=== PATIENT | female | born 1980 | race Caucasian/White ===

== ENCOUNTER 2017-04-21 20:16 | Outpatient (CLI) | payer OTHER | END 2017-04-21 20:17 | disposition critical access hospital (66) | LOC: EMS 20:16 | PROVIDERS: ATTEND Surgery | DX: R51 Headache (principal) | CPT/HCPCS: A0425; A0429 ==

== ENCOUNTER 2017-04-21 20:29 | Emergency (ER) | payer OTHER ==
[2017-04-21] MEDS ORDERED: ONDANSETRON ODT 4 MG TABLET TL STA (20:33)
[2017-04-21] MEDS ORDERED: ONDANSETRON ODT 4 MG TABLET ONE (20:41)
[2017-04-21] MEDS ORDERED: HYDROmorphone 1 MG/ML SYRINGE IVP STA (20:47)
[2017-04-21] MEDS ORDERED: HYDROmorphone 1 MG/ML SYRINGE ONE (20:48)
--- NOTE | 2017-04-21 21:02 | ED Physician Documentation ---
PD HPI HEADACHE - Stated complaint Stated Complaint: HEADACHE SUDDEN ONSET - Chief complaint Chief Complaint: Neuro - History obtained from History obtained from: Patient, Family, EMS - History of Present Illness Timing - onset: Today Timing - onset during: Rest Timing - duration: Minutes Timing - details: Abrupt onset, Still present Worst headache ever?: Worst headache ever? Location: Front, Other (top) Quality: Throbbing Associated symptoms: Nausea, Vomiting. No: Fever, Stiff neck, Weakness, Numbness, Syncope, Seizure, Eye pain, Vision changes Improved by: Rest Worsened by: Moving Contributing factors: No: Anticoagulated Similar symptoms before: Other (has a history of migraine) Recently seen: Not recently seen - Additional information Additional information: 36 y/o female with a history of migraine was in the kitchen cooking when she had the onset of severe headache accompanied by nausea and vomiting. Her notes she was in pain curled in the position crying and he called 911. Review of Systems Constitutional: denies: Fever, Chills, Myalgias, Fatigue Eyes: denies: Loss of vision, Decreased vision Ears: denies: Ear pain Nose: denies: Rhinorrhea / runny nose, Congestion Throat: denies: Sore throat Cardiac: denies: Chest pain / pressure, Palpitations Respiratory: denies: Dyspnea, Cough GI: reports: Nausea, Vomiting. denies: Abdominal Pain : denies: Dysuria, Frequency Skin: denies: Lesions Musculoskeletal: denies: Neck pain, Back pain, Extremity pain Neurologic: reports: Headache. denies: Generalized weakness, Focal weakness, Numbness, Difficulty speaking, Syncope, Seizure, Confused, Altered mental status , Head injury, LOC PD PAST MEDICAL HISTORY - Past Medical History Past Medical History: Yes Neuro: Headache/migraine - Past Surgical History Past Surgical History: Yes General: Appendectomy HEENT: Tonsil/Adenoidectomy - Present Medications Home Medications: Ambulatory Orders Medication Instructions Recorded Confirmed Antiviral 04/21/17 Escitalopram [Lexapro] 10 mg PO DAILY 04/21/17 04/21/17 - Allergies Allergies/Adverse Reactions: Allergies Allergy/AdvReac Type Severity Reaction Status Date / Time No Known Drug Allergies Allergy Verified 04/21/17 20:34 - Social History Does the pt smoke?: No Smoking Status: Never smoker Does the pt drink ETOH?: No Does the pt have substance abuse?: No - Immunizations Immunizations are current?: Yes - POLST Patient has POLST: No PD ED PE NORMAL - Vitals Vital signs reviewed: Yes (hypertensive) - General General: Alert and oriented X 3, Well developed/nourished, Other (The patient moves slowly and appears to be in pain with spray blender tone, flat affect and tears. 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 ) Results - Vitals Vitals: Vital Signs - 24 hr 04/21/17 04/21/17 04/21/17 20:30 21:03 21:43 Temperature 36.1 C L Heart Rate 93 58 L Respiratory 18 18 Rate Blood Pressure 142/109 H 130/80 128/82 H O2 Saturation 100 97 04/21/17 04/21/17 22:18 22:59 Temperature Heart Rate 72 68 Respiratory 17 16 Rate Blood Pressure 115/71 105/61 O2 Saturation 98 97 Oxygen O2 Source Room air - Rads (name of study) CT head without Radiology: Prelim report reviewed (Impression: Normal head CT.), EMP read indepedently, See rad report PD MEDICAL DECISION MAKING - ED course Complexity details: reviewed old records, reviewed results, re-evaluated patient , considered differential, d/w patient, d/w family ED course: 36 y/o female with a history of migraine has had a sever debilitating headache this evening and arrives in the ED with pain and nausea with vomiting. She has no meningismus and no fever and she improves with IV dilaudid and TL zofran. She does not have resolution and her headache was concerning enough to get imagining and this was a normal study. She is treated further with a liter of saline, decadraon, compazine, benadryl and toradal with further improvement. I suspect this is a bad migraine and I find no other concerns on examination. Departure - Departure Disposition: 01 Home, Self Care Clinical Impression: Migraine Qualifiers: Migraine type: without aura Status migrainosus presence: with status migrainosus Intractability: not intractable Qualified Code(s): G43.001 - Migraine without aura, not intractable, with status migrainosus Condition: Stable Instructions: ED Headache Migraine Follow-Up: Rony Erwin DO [Physician No Access] - Comments: Today in the Emergency Department your blood pressure was elevated. This can happen from the stress of the visit itself, from a current illness or circumstance or from uncontrolled hypertension. If you take blood pressure medications take your usual mediations, have your blood pressure re-checked in an appropriate setting and follow up any elevation with your primary care doctor. Discharge Date/Time: 04/21/17 23:04
--- NOTE | 2017-04-21 21:39 | CT Preliminary Report ---
Exam: CT Head W/O IMPRESSION: Normal head CT. [facility] SITE ID: [id number]
--- NOTE | 2017-04-21 21:42 | CT Report ---
EXAM: CT HEAD EXAM DATE: 04/21/2017 09:22 PM. CLINICAL HISTORY: Sudden headache and vomiting. COMPARISON: None. TECHNIQUE: Multiaxial CT images were obtained from the foramen magnum to the vertex. IV contrast: Non e. Reformats: Coronal. In accordance with CT protocol optimization, one or more of the following dose reduction techniques w ere utilized for this exam: automated exposure control, adjustment of mA and/or KV based on patient s ize, or use of iterative reconstructive technique. FINDINGS: Parenchyma: No intraparenchymal hemorrhage. No evidence of mass, midline shift, or CT findings of inf arction. Bryant-white differentiation is distinct. Extraaxial Spaces: Normal for age. No subdural or epidural collections identified. Ventricles: Normal in size and position. Sinuses: Imaged paranasal sinuses, orbits, and mastoids show no significant abnormality. Bones: No evidence of fracture or calvarial defect. Other: None. IMPRESSION: Normal head CT. [facility] Referring Provider Line: [phone] SITE ID: [id number]
[2017-04-21] MEDS ORDERED: PROCHLORPERAZINE 10 MG/2 ML VIAL IVP STA (21:58)
[2017-04-21] MEDS ORDERED: diphenhydrAMINE INJ 50 MG/ML VIAL IVP STA (21:58)
[2017-04-21] MEDS ORDERED: SODIUM CHLORIDE 0.9% 1,000 ML IV ONE (21:58)
[2017-04-21] MEDS ORDERED: KETOROLAC 60 MG/2 ML VIAL IVP STA (21:58)
[2017-04-21] MEDS ORDERED: DEXAMETHASONE 10 MG/ML VIAL IVP STA (21:58)
[2017-04-21] MEDS ORDERED: DEXAMETHASONE 10 MG/ML VIAL ONE (22:12)
[2017-04-21] MEDS ORDERED: KETOROLAC 30 MG/ML VIAL ONE (22:12)
[2017-04-21] MEDS ORDERED: diphenhydrAMINE INJ 50 MG/ML VIAL ONE (22:12)
[2017-04-21] MEDS ORDERED: PROCHLORPERAZINE 10 MG/2 ML VIAL ONE (22:12)
[2017-04-21 22:59] VITALS: BP 105/61
== END 2017-04-21 23:04 | disposition home or self-care (01) ==
LOC: EDUNIT# → ED 20:29
DX: G43.001 Migraine without aura, not intractable, with status migrainosus (principal)
CPT/HCPCS: 36415; 70450; 96374; 96375; 99284; J1170; Q0162

== ENCOUNTER 2018-06-22 08:49 | Outpatient (CLI) | payer OTHER ==
--- NOTE | 2018-06-23 10:45 | Ultrasound Report ---
Procedure Date: 06/22/2018 Accession Number: [id number] / [id number] Procedure: US - Abdomen Limited CPT Code: FULL RESULT: EXAM: ABDOMEN ULTRASOUND LIMITED, RUQ EXAM DATE: 06/22/2018 09:59 AM. CLINICAL HISTORY: Change in bowel habits, right upper quadrant abdominal pain, GERD. COMPARISON: None. TECHNIQUE: Real-time scanning was performed with static images obtained. FINDINGS: Liver: Normal in size and echotexture. Liver measures at least 15.3 cm. Main portal vein flow: Hepatopetal. Gallbladder: There are no calculi and there is no wall thickening or sonographic Epps's sign. Note is made of focal comet tail artifact adherent to the gallbladder wall, most likely adenomyomatosis of the gallbladder. Biliary System: No intrahepatic or extrahepatic ductal dilatation. Other: None. IMPRESSION: Gallbladder adenomyomatosis. This is most often asymptomatic but rarely can be associated with pain. [facility]
== END 2018-06-22 08:50 | disposition home or self-care (01) ==
LOC: DI 08:49
PROVIDERS: ATTEND Internal Medicine Gastroenterology
DX: R19.4 Change in bowel habit (principal); R10.11 Right upper quadrant pain; K21.9 Gastro-esophageal reflux disease without esophagitis
CPT/HCPCS: 76705

== ENCOUNTER 2019-12-01 11:46 | Outpatient (CLI) | payer OTHER, BC ==
--- NOTE | 2019-12-01 13:15 | Ultrasound Report ---
Reason: BRCA1 GENE MUTATION POSITIVE, CYSTS BOTH OVARIES Procedure Date: 12/01/2019 Accession Number: [id number] / [id number] Procedure: US - Pelvic w/Transvaginal CPT Code: Final Report FULL RESULT: EXAM: PELVIC ULTRASOUND EXAM DATE: 12/01/2019 11:53 AM. CLINICAL HISTORY: BRCA1 GENE MUTATION POSITIVE, CYSTS BOTH OVARIES. COMPARISON: 06/22/2018 9:04 AM. TECHNIQUE: Realtime transabdominal pelvic scan performed to identify the uterus and adnexa and as an overview of other pelvic structures, followed by transvaginal scan to provide greater detail of the uterus and adnexa, with static image documentation. FINDINGS: Uterus: 8.4 x 4.4 x 5.5 cm, volume 106 cc. Anteverted position. Normal overall size and echotexture. Masses: None. Endometrium: 8 mm. Normal. Cervix: Unremarkable. Right Ovary: 6.2 x 3.7 x 6.2 cm, volume 74.4 cc. 4.5 x 4.1 x 3 cm cyst with daughter cyst 3 x 1.7 x 2 cm. 2.1 x 1.3 x 1.6 cm cyst. Normal flow Left Ovary: 2.3 x 1.5 x 1.6 cm, volume 2.9 cc. Normal echotexture and blood flow. Free Fluid: None. Other: None. IMPRESSION: 1. Multiple right ovarian simple cysts largest 4.5 cm [facility]
== END 2019-12-01 11:47 | disposition home or self-care (01) ==
LOC: DI 11:46
PROVIDERS: ATTEND Obstetrics & Gynecology
DX: N83.201 Unspecified ovarian cyst, right side (principal); Z15.01 Genetic susceptibility to malignant neoplasm of breast; Z15.02 Genetic susceptibility to malignant neoplasm of ovary; Z15.09 Genetic susceptibility to other malignant neoplasm
CPT/HCPCS: 76830; 76856

== ENCOUNTER 2019-12-07 15:00 | Outpatient (CLI) | payer OTHER, BC | END 2019-12-07 15:01 | disposition home or self-care (01) | LOC: LAB 15:00 | PROVIDERS: ATTEND Obstetrics & Gynecology | DX: Z15.01 Genetic susceptibility to malignant neoplasm of breast (principal); N83.202 Unspecified ovarian cyst, left side; N83.201 Unspecified ovarian cyst, right side | CPT/HCPCS: 36415; 86304 ==

== ENCOUNTER 2020-03-12 15:07 | Outpatient (CLI) | payer OTHER ==
--- NOTE | 2020-03-12 19:38 | Ultrasound Report ---
Reason: RIGHT OVARIAN CYSTS F/U Procedure Date: 03/12/2020 Accession Number: [id number] / [id number] Procedure: US - Pelvic w/Transvaginal CPT Code: Final Report FULL RESULT: EXAM: PELVIC ULTRASOUND EXAM DATE: 03/12/2020 04:08 PM. CLINICAL HISTORY: Follow-up right ovarian cystic lesion. COMPARISON: PELVIC W/TRANSVAGINAL 12/01/2019 11:53 AM. TECHNIQUE: Realtime transabdominal pelvic scan performed to identify the uterus and adnexa and as an overview of other pelvic structures, followed by transvaginal scan to provide greater detail of the uterus and adnexa, with static image documentation. FINDINGS: Uterus: 8.4 x 4.2 x 4.4 cm, volume 80 cc. Anteverted position. Normal overall size and echotexture. Masses: None. Endometrium: 7 mm. Normal. Cervix: Several tiny nabothian cysts measure less than 1 cm. Right Ovary: 3.3 x 2.9 x 2.9 cm, volume 14.6 cc. 3 follicles or simple cysts range in size from 1.5-2.5 cm. Previously larger cysts were identified measuring up to 4.5 cm. No solid masses or evidence for torsion. Left Ovary: 2.0 x 2.4 x 2.6 cm, volume 6.4 cc. Normal echotexture and blood flow. Free Fluid: Trace. Other: None. IMPRESSION: 1. Interval resolution of 4.5 cm right ovarian cyst. 2. 3 follicles or smaller simple cysts now present in the right ovary measuring up to 2.5 cm. No further follow-up necessary for cysts of this size. [facility]
== END 2020-03-12 15:08 | disposition home or self-care (01) ==
LOC: DI 15:07
PROVIDERS: ATTEND Obstetrics & Gynecology
DX: N83.201 Unspecified ovarian cyst, right side (principal); Z15.01 Genetic susceptibility to malignant neoplasm of breast; Z15.02 Genetic susceptibility to malignant neoplasm of ovary; Z15.09 Genetic susceptibility to other malignant neoplasm
CPT/HCPCS: 76830; 76856

== ENCOUNTER 2020-12-21 21:36 | Emergency (ER) | payer BC, OTHER ==
[2020-12-21 21:47] VITALS: BP 130/82
[2020-12-21] MEDS ORDERED: DEXAMETHASONE 10 MG/ML VIAL PO STA (22:03)
[2020-12-21] MEDS ORDERED: CHERRY SYRUP 10 ML UDC PO ONE (22:03)
--- NOTE | 2020-12-21 22:05 | ED Physician Documentation ---
History of Present Illness - Stated complaint Stated Complaint: SORE THROAT - Chief complaint Chief Complaint: Heent - Additonal information Additional information: 40-year-old female presents emergency department for evaluation of sore throat that began yesterday. No cough no fevers no exudate. Positive tender anterior cervical lymphadenopathy. No dysphonia Patient had similar 1 year ago and received decadron and is requesting same today. Denies the possibility of , lmp 1 week ago Review of Systems Constitutional: denies: Fever, Chills Eyes: reports: Reviewed and negative Ears: reports: Reviewed and negative Nose: reports: Reviewed and negative Throat: reports: Sore throat. 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 HEENT: Tonsil/Adenoidectomy - Present Medications Home Medications: Ambulatory Orders Medication Instructions Recorded Confirmed Antiviral 04/21/17 Escitalopram [Lexapro] 10 mg PO DAILY 04/21/17 04/21/17 - Allergies Allergies/Adverse Reactions: Allergies Allergy/AdvReac Type Severity Reaction Status Date / Time No Known Drug Allergies Allergy Verified 04/21/17 20:34 - Social History Does the pt smoke?: No Smoking Status: Never smoker Does the pt drink ETOH?: No Does the pt have substance abuse?: No - Immunizations Immunizations are current?: Yes - POLST Patient has POLST: No PD ED PE EXPANDED - General General: Alert, No acute distress, Well developed/nourished - HEENT HEENT: PERRL, Moist mucous membranes (Mild posterior oropharynx erythema without exudate. Uvula is midline. No soft palate asymmetry or swelling. Normal swallow. No trismus. Normal phonation.), Pharyngeal erythema. No: Swollen tonsils, Tonsillar exudate - Neck Neck: Supple w/out meningeal sx, Adenopathy - Cardiac Cardiac: Regular Rate, Regular Rhythm, Radial strong equal - Respiratory Respiratory: Clear to ausultation honey. No: Distress, Labored Results - Vitals Vitals: Vital Signs - 24 hr 12/21/20 21:44 Temperature 36.5 C Heart Rate 87 Respiratory 18 Rate Blood Pressure 130/82 H O2 Saturation 99 Oxygen O2 Source Room air - Labs Labs: Laboratory Tests 12/21/20 21:50 Group A Strep Rapid Negative PD MEDICAL DECISION MAKING - ED course Complexity details: reviewed results, re-evaluated patient, considered differential ED course: 40-year-old female presents emergency department for acute sore throat that began 2 days ago. No fevers no exudate. Positive tender anterior cervical lymphadenopathy. No cough. Patient was given 10 mg of Decadron orally here in the emergency department. Rapid strep Is negative. Will defer antibiotics unless culture positive. History and exam is not consistent with RPA or GENERAL STUDIES PROGRAM CHAIR. Recommend patient continue Tylenol and Motrin at home gargle with warm salt water. Departure - Departure Disposition: Home, Self Care Clinical Impression: Pharyngitis Qualifiers: Pharyngitis/tonsillitis etiology: unspecified etiology Qualified Code(s): J02.9 - Acute pharyngitis, unspecified Condition: Stable Record reviewed to determine appropriate education?: Yes Instructions: ED Strep Pharyngitis Poss Comments: Marti you were seen today for a sore throat. Your rapid strep test is negative. We will order antibiotics only if the culture is positive. You were given a one-time dose of dexamethasone which should help with the pain over the next 24 hours. Please continue to gargle with warm salt water and take ibuprofen and Tylenol. We will call you if the culture is positive and you require antibiotics. If at any point you have worsening symptoms, cannot swallow or tolerate your oral secretions, have a high fever or cannot open your mouth fully please return immediately to the ER
[2020-12-21 22:08] LABS: RAPID STREP SCREEN Negative (Negative)
== END 2020-12-21 22:26 | disposition home or self-care (01) ==
LOC: ED 21:36
DX: J02.9 Acute pharyngitis, unspecified (principal)
CPT/HCPCS: 87070; 87430; 99283; A9270

== ENCOUNTER 2021-02-10 18:55 | Outpatient (CLI) | payer OTHER ==
--- NOTE | 2021-02-11 11:55 | Ultrasound Report ---
PROCEDURE: Pelvic w/Transvaginal INDICATIONS: BRCA1 GENE MUTATION POSITIVE IN FEMALE TECHNIQUE: Real-time scanning was performed of the pelvic organs, with image documentation. Additional endovagi nal scanning was necessary due to incomplete visualization of the adnexal and endometrial structures by transabdominal scanning. COMPARISON: Prior pelvic ultrasound 03/12/2020. FINDINGS: No pathologic free abdominal or pelvic fluid. Uterus: Uterus is anteverted and normal in size at 4.3 x 4.8 x 8.1 cm. The endometrium measures 3.7 mm in combined thickness. There is a small midline anterior subserosal fibroid measuring 1.9 x 0.9 x 1.1 cm. Ovaries: The right ovary measures 3.6 x 1.6 x 2.4 cm with a cyst measuring 1.8 x 0.9 x 1.8 cm, parti ally exophytic. The left ovary measures 2.7 x 1.4 x 2.0 cm. IMPRESSION: Normal-appearing uterus and endometrial lining. Normal size ovaries bilaterally. Incidental note is m yanira of a 1.8 x 0.9 x 1.8 cm ovarian cyst and also a small exophytic 1.8 x 1.4 x 1.[address] contiguous with the ovarian margin. Reviewed by: Kei Pearson MD on 02/11/2021 11:54 AM PDT Approved by: Kei Pearson MD on 02/11/2021 11:54 AM PDT Station ID: [id number]
--- OUTSIDE RECORDS SUMMARY | 2021-02-13 02:47 | EXTERNAL MEDICAL SUMMARY RPT | Continuity of Care Document ---
:1980 Demographics Phone Unavailable Preferred Language Venezuelan Marital Status Unknown Caodaism Affiliation Unknown Race Unknown Ethnic Group Unknown Author Organization [facility] Address [address] [place] [address] Phone Problems date description facility [id number] Encounter for immunization [facility] Social History date description facility [id number]
== END 2021-02-10 18:56 | disposition home or self-care (01) ==
LOC: DI 18:55
PROVIDERS: ATTEND Obstetrics & Gynecology
DX: Z15.01 Genetic susceptibility to malignant neoplasm of breast (principal); Z15.02 Genetic susceptibility to malignant neoplasm of ovary; Z15.09 Genetic susceptibility to other malignant neoplasm; N83.201 Unspecified ovarian cyst, right side

== ENCOUNTER 2021-06-07 14:30 | Outpatient (CLI) | payer OTHER | END 2021-06-07 23:59 | disposition home or self-care (01) | LOC: COV 14:30 | PROVIDERS: ATTEND Family Medicine | DX: Z20.822 Contact with and (suspected) exposure to COVID-19 (principal) ==

== ENCOUNTER 2021-06-13 15:52 | Outpatient (CLI) | payer OTHER | END 2021-06-13 15:53 | disposition home or self-care (01) | LOC: COV 15:52 | PROVIDERS: ATTEND Family Medicine | DX: Z20.822 Contact with and (suspected) exposure to COVID-19 (principal) ==

== ENCOUNTER 2022-03-10 14:07 | Outpatient (CLI) | payer OTHER ==
--- NOTE | 2022-03-10 14:32 | XRAY Report ---
PROCEDURE: Knee 3 View RT INDICATIONS: R PATELLAR TENDONITIS TECHNIQUE: 3 views of the right knee(s) were acquired. COMPARISON: None. FINDINGS: Bones: No fractures or dislocations. No suspicious bony lesions. Soft tissues: No joint effusion. No suspicious soft tissue calcifications. IMPRESSION: Normal right knee Reviewed by: Mikael Meng on 03/10/2022 2:31 PM PDT Approved by: Mikael Meng on 03/10/2022 2:31 PM PDT Station ID: [id number]
== END 2022-03-10 23:59 | disposition home or self-care (01) ==
LOC: DI.N 14:07
PROVIDERS: ATTEND Physician Assistant Medical
DX: M76.51 Patellar tendinitis, right knee (principal)

== ENCOUNTER 2022-03-31 15:56 | Outpatient (CLI) | payer OTHER | END 2022-03-31 15:57 | disposition home or self-care (01) | LOC: LAB 15:56 | PROVIDERS: ATTEND Obstetrics & Gynecology | DX: Z15.01 Genetic susceptibility to malignant neoplasm of breast (principal); Z15.02 Genetic susceptibility to malignant neoplasm of ovary; Z15.09 Genetic susceptibility to other malignant neoplasm | CPT/HCPCS: 36415; 86304 ==

== ENCOUNTER 2022-04-16 10:00 | Outpatient (CLI) | payer OTHER ==
--- NOTE | 2022-04-17 09:34 | Ultrasound Report ---
PROCEDURE: Pelvic w/Transvaginal INDICATIONS: BRCA MUTATION TECHNIQUE: Real-time scanning was performed of the pelvic organs, with image documentation. Additional endovagi nal scanning was necessary due to incomplete visualization of the adnexal and endometrial structures by transabdominal scanning. COMPARISON: 02/10/2021 pelvic ultrasound FINDINGS: Simple cysts in the right ovary measuring 1.8 x 1.4 x 1.1 cm. Another mildly complex cyst with some l ow-level internal echoes and a traversing septation measures 1.3 x 1.3 x 1.2 cm. There is no associat ed peripheral lower internal Doppler flow within this lesion. The left ovary is normal measuring 2.0 x 1.6 x 1.2 cm. No left ovarian or adnexal mass. Normal size and appearance of the uterus. Normal thickness endometrium. No uterine mass. IMPRESSION: Right ovarian cysts which have a benign appearance. Otherwise normal exam. Reviewed by: Christopher Savage MD on 04/17/2022 9:32 AM PDT Approved by: Christopher Savage MD on 04/17/2022 9:32 AM PDT Station ID: [id number]
== END 2022-04-16 10:01 | disposition home or self-care (01) ==
LOC: DI 10:00
PROVIDERS: ATTEND Obstetrics & Gynecology
DX: Z15.01 Genetic susceptibility to malignant neoplasm of breast (principal); Z15.02 Genetic susceptibility to malignant neoplasm of ovary; Z15.09 Genetic susceptibility to other malignant neoplasm; N83.201 Unspecified ovarian cyst, right side

== ENCOUNTER 2022-05-29 13:27 | Emergency (ER) | payer OTHER ==
[2022-05-29 13:40] VITALS: BP 143/93
[2022-05-29 14:03] LABS: BASOPHILS % (AUTO) 0.4 %; EOSINOPHILS # (AUTO) 0.1 10^3/uL (0.0-0.7); HCT - HEMATOCRIT 38.1 % (37.0-47.0); HGB - HEMOGLOBIN 13.1 g/dL (12.0-16.0); LYMPHOCYTES # (AUTO) 2.5 10^3/uL (1.5-3.5); LYMPHOCYTES % (AUTO) 34.4 %; MEAN CORPUSCULAR HGB CONC 34.4 g/dL (32.0-36.0); MEAN CORPUSCULAR VOLUME 87.2 fL (81.0-99.0); MEAN PLATELET VOLUME 8.7 fL (7.9-10.8); MONOCYTES # (AUTO) 0.4 10^3/uL (0.0-1.0); MONOCYTES % (AUTO) 5.6 %; NEUTROPHILS # (AUTO) 4.2 10^3/uL (1.5-6.6); NEUTROPHILS % (AUTO) 58.3 %; PLT - PLATELET COUNT 415 10^3/uL (130-450); RED BLOOD COUNT 4.37 10^6/uL (4.20-5.40); RED CELL DISTRIBUTION WIDTH 12.2 % (12.0-15.0); WHITE BLOOD COUNT 7.3 x10^3/uL (4.8-10.8)
[2022-05-29 14:13] LABS: ALBUMIN 4.2 g/dL (3.2-5.5); ALBUMIN/GLOBULIN RATIO 1.1 (1.0-2.2); BILIRUBIN,TOTAL 0.6 mg/dL (0.2-1.0); CALCIUM 9.7 mg/dL (8.5-10.3); CREATININE 0.6 mg/dL (0.4-1.0); POTASSIUM 3.8 mmol/L (3.5-5.0); TOTAL PROTEIN 7.9 g/dL (6.7-8.2)
--- NOTE | 2022-05-29 15:36 | Ultrasound Report ---
PROCEDURE: Abdomen Limited INDICATIONS: RUQ pain TECHNIQUE: Real-time focused scanning was performed of the abdomen, with image documentation. COMPARISON: 06/22/2018 FINDINGS: There is an approximately 3 mm gallbladder polyp. Gallbladder otherwise normal. Diffuse mo derate hepatic steatosis with mild coarsening of the hepatic echotexture potentially representing lane atohepatitis or early cirrhotic change. Normal appearance of the pancreas and right kidney. No intrah epatic or extra hepatic biliary ductal dilatation. IMPRESSION: Coarsened hepatic echotexture with increased hepatic parenchymal echogenicity. This may represents ga dolinium hepatitis or other diffuse hepatocellular disorder. Early cirrhotic change cannot be strictl y excluded. Small gallbladder polyp measuring 3 mm is of no clinical significance. Reviewed by: Christopher Savage MD on 05/29/2022 3:35 PM PDT Approved by: Christopher Savage MD on 05/29/2022 3:35 PM PDT Station ID: [id number]
--- NOTE | 2022-05-29 16:08 | ED Physician Documentation ---
PD HPI ABD PAIN - Stated complaint Stated Complaint: ABD PX/NAUSEA - Chief complaint Chief Complaint: Abd Pain - History obtained from History obtained from: Patient - Additional information Additional information: 41-year-old woman who for the last several weeks has had episodic right upper quadrant pain radiating to the shoulders. No relationship to eating. Had labs done at the MD, results as yet unknown. No history of abdominal surgeries. Chronically loose stools, not acutely changed. 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 HEENT: Tonsil/Adenoidectomy - Present Medications Home Medications: Ambulatory Orders Medication Instructions Recorded Confirmed Antiviral 04/21/17 Escitalopram [Lexapro] 10 mg PO DAILY 04/21/17 04/21/17 Omeprazole 40 mg PO DAILY #30 cap 05/29/22 - Allergies Allergies/Adverse Reactions: Allergies Allergy/AdvReac Type Severity Reaction Status Date / Time No Known Drug Allergies Allergy Verified 04/21/17 20:34 - Social History Does the pt smoke?: No Smoking Status: Never smoker Does the pt drink ETOH?: No Does the pt have substance abuse?: No - Immunizations Immunizations are current?: Yes - POLST Patient has POLST: No PD ED PE NORMAL - Vitals Vital signs reviewed: Yes - General General: Alert and oriented X 3, No acute distress - Abdomen Abdomen: Normal bowel sounds, Soft, Non tender - Neuro Neuro: Alert and oriented X 3, Normal speech Results - Vitals Vitals: Vital Signs - 24 hr 05/29/22 13:38 Temperature 36.9 C Heart Rate 77 Respiratory 16 Rate Blood Pressure 143/93 H O2 Saturation 98 Oxygen O2 Source Room air - Labs Labs: Laboratory Tests 05/29/22 05/29/22 05/29/22 13:56 13:56 16:00 WBC 7.3 RBC 4.37 Hgb 13.1 Hct 38.1 MCV 87.2 MCH 30.0 MCHC 34.4 RDW 12.2 Plt Count 415 MPV 8.7 Neut # (Auto) 4.2 Lymph # (Auto) 2.5 [place] # (Auto) 0.4 Eos # (Auto) 0.1 Baso # (Auto) 0.0 Absolute Nucleated RBC 0.00 Nucleated RBC % 0.0 Sodium 136 Potassium 3.8 Chloride 102 Carbon Dioxide 26 Anion Gap 8.0 BUN 8 Creatinine 0.6 Estimated GFR (MDRD) 110 Glucose 108 H Calcium 9.7 Total Bilirubin 0.6 AST 26 ALT 36 Alkaline Phosphatase 78 Total Protein 7.9 Albumin 4.2 Globulin 3.7 Albumin/Globulin Ratio 1.1 Lipase 31 Urine Color YELLOW Urine Clarity CLEAR Urine pH 7.5 Ur Specific [place] 1.020 Urine Protein NEGATIVE Urine Glucose (UA) NEGATIVE Urine Ketones NEGATIVE Urine Occult Blood TRACE-INTA Urine Nitrite NEGATIVE Urine Bilirubin NEGATIVE Urine Urobilinogen 0.2 (NORMAL) Ur Leukocyte Esterase NEGATIVE Ur Microscopic Review NOT INDICATED Urine Culture Comments NOT INDICATED Urine HCG, Qual NEGATIVE - Rads (name of study) RUQ sono Radiology: Final report received (Presumed "gadolinium hepatitis" is a missed dictation, the underwriting clerk's notes noted only a fatty liver.) PD MEDICAL DECISION MAKING - ED course ED course: 41-year-old presents with episodic nonpostprandial right upper quadrant pain with negative ultrasound and labs except for fatty liver and gallbladder polyp. She is nontender. We will start a PPI pending follow-up. Departure - Departure Disposition: 01 Home, Self Care Clinical Impression: Abdominal pain Qualifiers: Abdominal location: right upper quadrant Qualified Code(s): R10.11 - Right upper quadrant pain Condition: Good Record reviewed to determine appropriate education?: Yes Instructions: ED Abdominal Pain Female Non-Specific Abdominal Pain Prescriptions: Omeprazole 40 mg PO DAILY #30 cap Comments: As discussed, your ultrasound shows some fatty liver and a gallbladder polyp, unlikely these are causing your pain. Labs are unremarkable. Plan to start a PPI such as omeprazole which I am prescribing. This is because the most likely cause of similar pain is from ulcer disease. If that does not improve your symptoms over the next few days/over the weekend, talk with your doctor about a HIDA scan. Or upper endoscopy. Discharge Date/Time: 05/29/22 16:12
[2022-05-29 16:12] LABS: BILIRUBIN,URINE NEGATIVE (NEGATIVE); GLUCOSE, URINE (UA) NEGATIVE (NEGATIVE); KETONES,URINE (UA) NEGATIVE (NEGATIVE); LEUKOCYTE ESTERASE, URINE NEGATIVE (NEGATIVE); NITRITE,URINE NEGATIVE (NEGATIVE); OCCULT BLOOD,URINE TRACE-INTA (NEGATIVE); PH,URINE 7.5 PH (5.0-7.5); PROTEIN,URINE NEGATIVE (NEGATIVE); UROBILINOGEN,URINE 0.2 (NORMAL) E.U./dL (NORMAL)
[2022-05-29 16:13] LABS: CLARITY,URINE CLEAR (CLEAR); HCG UR QUAL NEGATIVE
== END 2022-05-29 16:12 | disposition home or self-care (01) ==
LOC: ED 13:27
DX: R10.11 Right upper quadrant pain (principal)
CPT/HCPCS: 36415; 80053; 81001; 81003; 81025; 83690; 85025; 87086; 99282; 99284

== ENCOUNTER 2023-03-16 07:48 | Outpatient (CLI) | payer OTHER | END 2023-03-16 23:59 | disposition critical access hospital (66) | LOC: EMS 07:48 | DX: R45.851 Suicidal ideations (principal) | CPT/HCPCS: A0425; A0429 ==

== ENCOUNTER 2023-03-16 08:00 | Emergency (ER) | payer OTHER ==
[2023-03-16 08:22] LABS: BASOPHILS % (AUTO) 0.5 %; EOSINOPHILS % (AUTO) 0.5 %; HCT - HEMATOCRIT 35.2 % (37.0-47.0); HGB - HEMOGLOBIN 11.8 g/dL (12.0-16.0); LYMPHOCYTES # (AUTO) 1.6 10^3/uL (1.5-3.5); LYMPHOCYTES % (AUTO) 26.5 %; MEAN CORPUSCULAR HEMOGLOBIN 29.4 pg (27.0-31.0); MEAN CORPUSCULAR HGB CONC 33.5 g/dL (32.0-36.0); MEAN CORPUSCULAR VOLUME 87.8 fL (81.0-99.0); MEAN PLATELET VOLUME 8.5 fL (7.9-10.8); MONOCYTES # (AUTO) 0.4 10^3/uL (0.0-1.0); MONOCYTES % (AUTO) 6.9 %; NEUTROPHILS # (AUTO) 4.1 10^3/uL (1.5-6.6); NEUTROPHILS % (AUTO) 65.3 %; PLT - PLATELET COUNT 353 10^3/uL (130-450); RED BLOOD COUNT 4.01 10^6/uL (4.20-5.40); RED CELL DISTRIBUTION WIDTH 12.4 % (12.0-15.0); WHITE BLOOD COUNT 6.2 x10^3/uL (4.8-10.8)
[2023-03-16 08:42] LABS: ALBUMIN 3.8 g/dL (3.2-5.5); ALKALINE PHOSPHATASE 73 IU/L (42-121); ALT ALANINE AMINOTRANSFERASE 45 IU/L (10-60); AST ASPARTATE AMINOTRANSFERASE 33 IU/L (10-42); BILIRUBIN,TOTAL 0.7 mg/dL (0.2-1.0); BUN - BLOOD UREA NITROGEN 5 mg/dL (6-20); CALCIUM 9.2 mg/dL (8.5-10.3); CARBON DIOXIDE - CO2 24 mmol/L (21-32); CHLORIDE 103 mmol/L (101-111); CREATININE 0.7 mg/dL (0.4-1.0); ETOH - ETHANOL < 5.0 mg/dL; GFR - MDRD 92 (>89); GLUCOSE 145 mg/dL (70-100); LIPASE 40 U/L (22-51); SODIUM 139 mmol/L (135-145); TOTAL PROTEIN 7.6 g/dL (6.7-8.2)
[2023-03-16 09:04] LABS: MUDS CUTOFF CONCENTRATIONS CUTOFF CONC BELOW:
[2023-03-16 09:07] LABS: HCG UR QUAL NEGATIVE
[2023-03-16 09:18] LABS: AMPHETAMINE SCREEN,URINE NEGATIVE (NEGATIVE); BARBITURATE SCREEN,UR NEGATIVE (NEGATIVE); BENZODIAZEPINES SCREEN, URINE NEGATIVE (NEGATIVE); COCAINE SCREEN URINE NEGATIVE (NEGATIVE); METHADONE SCREEN, URINE NEGATIVE (NEGATIVE); METHAMPHETAMINES SCREEN, URINE NEGATIVE (NEGATIVE); OPIATE SCREEN, URINE NEGATIVE (NEGATIVE); OXYCODONE SCREEN, URINE NEGATIVE (NEGATIVE); PROPOXYPHENE SCREEN, URINE NEGATIVE (NEGATIVE); THC CANNABINOID SCREEN, URINE NEGATIVE (NEGATIVE); TRICYCLIC ANTIDEPRESSANT,URINE NEGATIVE (NEGATIVE)
--- NOTE | 2023-03-16 09:19 | ED Physician Documentation ---
History of Present Illness - Stated complaint Stated Complaint: SI - Chief complaint Chief Complaint: MHE - History obtained from History obtained from: Patient - Additonal information Additional information: The patient comes to the emergency department chief complaint of feeling overwhelmed, stressed, and unable to handle her job and responsibilities anymore. She states that she had some thoughts of suicide over the last few days because of this. She has not made any actual attempts and has no history of attempting suicide previously. She has never been in an inpatient setting. She has been on Celexa for many years but states she does not feel like it is helping anymore. She states she just feels anxious and keeps making "stupid decisions" and doing things that are uncharacteristic for her because of the stress. She feels she needs a leave of absence from work to try to deal with her stresses. The patient does note that she thinks things have been worse since she had a salpingo-oophorectomy back in the fall. She feels that her hormones have been off and thinks this may have something to do with the way she is feeling. She does have a primary doctor with whom she can follow-up about these issues. When the patient was feeling suicidal last night, she called a mental health helpline and they gave her some advice. They apparently called back this morning and the patient was still feeling somewhat suicidal and was not able to contract for safety over the phone and so the hotline called EMS. The patient does not have any other complaints at this time. 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: Oophrectomy, Mastectomy HEENT: Tonsil/Adenoidectomy - Present Medications Home Medications: Ambulatory Orders Medication Instructions Recorded Confirmed Escitalopram [Lexapro] 20 mg PO DAILY 04/21/17 03/16/23 Omeprazole 40 mg PO DAILY #30 cap 05/29/22 03/16/23 Cetirizine HCl [Zyrtec] 10 mg PO DAILY 03/16/23 03/16/23 Estradiol [Estrace] 2.5 mg PO DAILY 03/16/23 03/16/23 Levothyroxine Sodium [Synthroid] 75 mcg PO DAILY 03/16/23 03/16/23 - Allergies Allergies/Adverse Reactions: Allergies Allergy/AdvReac Type Severity Reaction Status Date / Time No Known Drug Allergies Allergy Verified 03/16/23 08:19 - Social History Does the pt smoke?: No Smoking Status: Never smoker Does the pt drink ETOH?: No Does the pt have substance abuse?: No - Immunizations Immunizations are current?: Yes - POLST Patient has POLST: No PD ED PE NORMAL - Vitals Vital signs reviewed: Yes - General General: Alert and oriented X 3, No acute distress, Well developed/nourished - HEENT HEENT: Atraumatic, PERRL, EOMI, Moist mucous membranes - Neck Neck: Supple, no meningeal sign - Cardiac Cardiac: RRR, No murmur, Strong equal pulses - Respiratory Respiratory: No respiratory distress, Clear bilaterally - Abdomen Abdomen: Soft, Non tender, Non distended - Derm Derm: Normal color, Warm and dry, No rash - Extremities Extremities: No deformity, No edema - Neuro Neuro: Alert and oriented X 3 - Psych Psych: Normal mood, Normal affect Results - Vitals Vitals: Vital Signs - 24 hr 03/16/23 03/16/23 08:19 16:26 Temperature 36.2 C L Heart Rate 81 65 Respiratory 17 16 Rate Blood Pressure 151/83 H 142/87 H O2 Saturation 99 98 Oxygen O2 Source Room air - Labs Labs: Laboratory Tests 03/16/23 03/16/23 03/16/23 08:17 08:17 09:01 WBC 6.2 RBC 4.01 L Hgb 11.8 L Hct 35.2 L MCV 87.8 MCH 29.4 MCHC 33.5 RDW 12.4 Plt Count 353 MPV 8.5 Neut # (Auto) 4.1 Lymph # (Auto) 1.6 Lamb # (Auto) 0.4 Eos # (Auto) 0.0 Baso # (Auto) 0.0 Absolute Nucleated RBC 0.00 Nucleated RBC % 0.0 Sodium 139 Potassium 3.0 L Chloride 103 Carbon Dioxide 24 Anion Gap 12.0 BUN 5 L Creatinine 0.7 Estimated GFR (MDRD) 92 Glucose 145 H Calcium 9.2 Total Bilirubin 0.7 AST 33 ALT 45 Alkaline Phosphatase 73 Total Protein 7.6 Albumin 3.8 Globulin 3.8 Albumin/Globulin Ratio 1.0 Lipase 40 Urine HCG, Qual NEGATIVE Urine Opiates Screen Ur Oxycodone Screen Urine Methadone Screen Ur Propoxyphene Screen Ur Barbiturates Screen Ur Tricyclics Screen Ur Phencyclidine Scrn Ur Amphetamine Screen U Methamphetamines Scrn U Benzodiazepines Scrn Urine Cocaine Screen U Cannabinoids Screen Ethyl Alcohol < 5.0 SARS-CoV-2 (PCR) 03/16/23 03/16/23 03/16/23 09:01 12:50 15:10 WBC RBC Hgb Hct MCV MCH MCHC RDW Plt Count MPV Neut # (Auto) Lymph # (Auto) [place] # (Auto) Eos # (Auto) Baso # (Auto) Absolute Nucleated RBC Nucleated RBC % Sodium 140 Potassium 3.3 L Chloride 104 Carbon Dioxide 25 Anion Gap 11.0 BUN < 5 L Creatinine 0.6 Estimated GFR (MDRD) 110 Glucose 137 H Calcium 8.6 Total Bilirubin AST ALT Alkaline Phosphatase Total Protein Albumin Globulin Albumin/Globulin Ratio Lipase Urine HCG, Qual Urine Opiates Screen NEGATIVE Ur Oxycodone Screen NEGATIVE Urine Methadone Screen NEGATIVE Ur Propoxyphene Screen NEGATIVE Ur Barbiturates Screen NEGATIVE Ur Tricyclics Screen NEGATIVE Ur Phencyclidine Scrn NEGATIVE Ur Amphetamine Screen NEGATIVE U Methamphetamines Scrn NEGATIVE U Benzodiazepines Scrn NEGATIVE Urine Cocaine Screen NEGATIVE U Cannabinoids Screen NEGATIVE Ethyl Alcohol SARS-CoV-2 (PCR) NOT DETECTED PD Medical Decision Making - ED course Complexity details: reviewed results, re-evaluated patient, considered differential, d/w patient ED course: The patient was medically cleared with ER abdominal panel, CBC, urine drug screen, alcohol level, and test, all of which were ordered and reviewed by me. The patient was evaluated by social work after medical clearance and deemed appropriate for voluntary inpatient treatment. She was excepted at [facility] by Dr. Tate. They did request that her potassium, which was found to be 3.0, be brought up to closer to normal, as the patient was given supplemental potassium in the emergency department, with a repeat potassium of 3.3. This was acceptable to [facility]. At this point in time, the patient is about to be transferred. She has been calm and cooperative here in the emergency department. Departure - Departure Disposition: [facility] Hosp/Unit DC/Xfer Clinical Impression: Anxiety Depression Qualifiers: Depression Type: major depressive disorder Major depression recurrence: recurrent Active/Remission status: currently active Major depression episode severity: moderate Qualified Code(s): F33.1 - Major depressive disorder, recurrent, moderate Condition: Serious
[2023-03-16] MEDS ORDERED: POTASSIUM CHLOR 10 MEQ/100 ML 10 MEQ/100 ML BAG IV STA (12:58)
[2023-03-16] MEDS ORDERED: SODIUM CHLORIDE 0.9% 1,000 ML IV STA (12:58)
[2023-03-16 15:25] LABS: BUN - BLOOD UREA NITROGEN < 5 mg/dL (6-20); CALCIUM 8.6 mg/dL (8.5-10.3); CARBON DIOXIDE - CO2 25 mmol/L (21-32); CHLORIDE 104 mmol/L (101-111); CREATININE 0.6 mg/dL (0.4-1.0); GFR - MDRD 110 (>89); GLUCOSE 137 mg/dL (70-100); POTASSIUM 3.3 mmol/L (3.5-5.0); SODIUM 140 mmol/L (135-145)
[2023-03-16] MEDS ORDERED: POTASSIUM CHLORIDE 20 MEQ TABLET PO STA (15:27)
[2023-03-16 16:26] VITALS: BP 142/87
== END 2023-03-16 18:16 ==
LOC: EDUNIT# → ED 08:09
DX: F33.1 Major depressive disorder, recurrent, moderate (principal); F41.9 Anxiety disorder, unspecified; Z20.822 Contact with and (suspected) exposure to COVID-19; E03.9 Hypothyroidism, unspecified; Z79.899 Other long term (current) drug therapy
CPT/HCPCS: 36415; 80048; 80053; 80306; 80320; 81025; 83690; 85025; 87635; 93005; 96365; 99284; 99285; A9270

== ENCOUNTER 2023-05-14 05:11 | Emergency (ER) | payer OTHER ==
[2023-05-14 05:42] LABS: MUDS CUTOFF CONCENTRATIONS CUTOFF CONC BELOW:
[2023-05-14 05:44] LABS: BILIRUBIN,URINE NEGATIVE (NEGATIVE); GLUCOSE, URINE (UA) NEGATIVE (NEGATIVE); KETONES,URINE (UA) 40 mg/dL (NEGATIVE); LEUKOCYTE ESTERASE, URINE NEGATIVE (NEGATIVE); NITRITE,URINE NEGATIVE (NEGATIVE); OCCULT BLOOD,URINE SMALL (NEGATIVE); PROTEIN,URINE NEGATIVE (NEGATIVE); UROBILINOGEN,URINE 1 (NORMAL) E.U./dL (NORMAL)
[2023-05-14 05:46] LABS: CLARITY,URINE CLEAR (CLEAR)
[2023-05-14 05:52] LABS: BACTERIA,URINE None Seen /HPF (None Seen); RBC,URINE 0-5 /HPF (0-5); SQUAMOUS EPITHELIAL CELL,UR RARE Squamous (<= Few); WBC,URINE 0-3 /HPF (0-5)
[2023-05-14 05:54] LABS: AMPHETAMINE SCREEN,URINE NEGATIVE (NEGATIVE); BARBITURATE SCREEN,UR NEGATIVE (NEGATIVE); BENZODIAZEPINES SCREEN, URINE NEGATIVE (NEGATIVE); COCAINE SCREEN URINE NEGATIVE (NEGATIVE); METHADONE SCREEN, URINE NEGATIVE (NEGATIVE); METHAMPHETAMINES SCREEN, URINE NEGATIVE (NEGATIVE); OPIATE SCREEN, URINE NEGATIVE (NEGATIVE); OXYCODONE SCREEN, URINE NEGATIVE (NEGATIVE); PROPOXYPHENE SCREEN, URINE NEGATIVE (NEGATIVE); THC CANNABINOID SCREEN, URINE NEGATIVE (NEGATIVE); TRICYCLIC ANTIDEPRESSANT,URINE NEGATIVE (NEGATIVE)
[2023-05-14 05:55] LABS: BASOPHILS % (AUTO) 0.4 %; EOSINOPHILS # (AUTO) 0.1 10^3/uL (0.0-0.7); EOSINOPHILS % (AUTO) 0.6 %; HCT - HEMATOCRIT 36.7 % (37.0-47.0); LYMPHOCYTES # (AUTO) 1.8 10^3/uL (1.5-3.5); LYMPHOCYTES % (AUTO) 21.5 %; MEAN CORPUSCULAR HEMOGLOBIN 28.8 pg (27.0-31.0); MEAN CORPUSCULAR HGB CONC 32.7 g/dL (32.0-36.0); MEAN PLATELET VOLUME 8.1 fL (7.9-10.8); MONOCYTES # (AUTO) 0.6 10^3/uL (0.0-1.0); MONOCYTES % (AUTO) 6.9 %; NEUTROPHILS % (AUTO) 70.2 %; PLT - PLATELET COUNT 392 10^3/uL (130-450); RED BLOOD COUNT 4.17 10^6/uL (4.20-5.40); WHITE BLOOD COUNT 8.6 x10^3/uL (4.8-10.8)
--- NOTE | 2023-05-14 05:57 | ED Physician Documentation ---
PD HPI MHE - Stated complaint Stated Complaint: MHE - Chief complaint Chief Complaint: MHE - History obtained from History obtained from: Patient - Additional information Additional information: HPI from patient. Patient c/o racing thoughts, rapidly fluctuating moods, and paranoid thoughts. These symptoms have been worsening over the past few days. She denies SI/HI/AH/VH. She was evaluated in this ED two months ago for similar c/o; patient says she feels her recent symptoms are not as bad as when she was evaluated here two months ago. On this previous evaluation, she was transferred to [facility] for inpatient treatment of suicidal thoughts. The patient tells me that she was inpatient for 8 days, at which time she signed herself out. She says she did not sign out AMA, as she was there voluntarily. She tells me she isn't sure if the medications that were started on the inpatient stay were helping or not (these included haldol and trazadone). She was provided prescriptions for these medications when she left [facility] but eventually stopped taking them (again this was due to uncertainty as to whether they were helping). Prior to her admission 2 months ago, she was on e scitalopram, and she continues to be on this medication. She presents at this time requesting inpatient stay for her symptoms; she says she would prefer to be transferred back to [facility] if this is an option. 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: Oophrectomy, Mastectomy HEENT: Tonsil/Adenoidectomy - Present Medications Home Medications: Ambulatory Orders Medication Instructions Recorded Confirmed Escitalopram [Lexapro] 20 mg PO DAILY 04/21/17 05/14/23 Omeprazole 40 mg PO DAILY #30 cap 05/29/22 05/14/23 Cetirizine HCl [Zyrtec] 10 mg PO DAILY 03/16/23 05/14/23 Estradiol [Estrace] 2.5 mg PO DAILY 03/16/23 05/14/23 Levothyroxine Sodium [Synthroid] 75 mcg PO DAILY 03/16/23 05/14/23 - Allergies Allergies/Adverse Reactions: Allergies Allergy/AdvReac Type Severity Reaction Status Date / Time No Known Drug Allergies Allergy Verified 05/14/23 05:29 - Social History Does the pt smoke?: No Smoking Status: Never smoker Does the pt drink ETOH?: No Does the pt have substance abuse?: No - Immunizations Immunizations are current?: Yes - POLST Patient has POLST: No PD ED PE NORMAL - Vitals Vital signs reviewed: Yes - General General: Alert and oriented X 3, No acute distress, Well developed/nourished - Cardiac Cardiac: RRR, No murmur - Respiratory Respiratory: No respiratory distress, Clear bilaterally - Abdomen Abdomen: Soft, Non tender - Neuro Neuro: Alert and oriented X 3, Normal speech Eye Opening: Spontaneous Motor: Obeys Commands Verbal: Oriented GCS Score: 15 - Psych Psych: Normal mood, Normal affect Results - Vitals Vitals: Vital Signs - 24 hr 05/14/23 05:20 Temperature 36.2 C L Heart Rate 100 Respiratory 16 Rate Blood Pressure 149/88 H O2 Saturation 99 Oxygen O2 Source Room air - Labs Labs: Laboratory Tests 05/14/23 05/14/23 05/14/23 05:41 05:49 05:49 WBC 8.6 RBC 4.17 L Hgb 12.0 Hct 36.7 L MCV 88.0 MCH 28.8 MCHC 32.7 RDW 13.0 Plt Count 392 MPV 8.1 Neut # (Auto) 6.0 Lymph # (Auto) 1.8 [place] # (Auto) 0.6 Eos # (Auto) 0.1 Baso # (Auto) 0.0 Absolute Nucleated RBC 0.00 Nucleated RBC % 0.0 Sodium 135 Potassium 3.3 L Chloride 102 Carbon Dioxide 22 Anion Gap 11.0 BUN 8 Creatinine 0.7 Estimated GFR (MDRD) 92 Glucose 126 H Calcium 8.8 Total Bilirubin 1.7 H AST 35 ALT 36 Alkaline Phosphatase 73 Total Protein 8.0 Albumin 3.8 Globulin 4.2 Albumin/Globulin Ratio 0.9 L Lipase 26 TSH Urine Color YELLOW Urine Clarity CLEAR Urine pH 6.0 Ur Specific [facility] 1.015 Urine Protein NEGATIVE Urine Glucose (UA) NEGATIVE Urine Ketones 40 H Urine Occult Blood SMALL H Urine Nitrite NEGATIVE Urine Bilirubin NEGATIVE Urine Urobilinogen 1 (NORMAL) Ur Leukocyte Esterase NEGATIVE Urine RBC 0-5 Urine WBC 0-3 Ur Squamous Epith Cells RARE Squamous Urine Bacteria None Seen Ur Microscopic Review INDICATED Urine Culture Comments NOT INDICATED Salicylates < 6.0 Urine Opiates Screen NEGATIVE Ur Oxycodone Screen NEGATIVE Urine Methadone Screen NEGATIVE Ur Propoxyphene Screen NEGATIVE Acetaminophen < 10 L Ur Barbiturates Screen NEGATIVE Ur Tricyclics Screen NEGATIVE Ur Phencyclidine Scrn NEGATIVE Ur Amphetamine Screen NEGATIVE U Methamphetamines Scrn NEGATIVE U Benzodiazepines Scrn NEGATIVE Urine Cocaine Screen NEGATIVE U Cannabinoids Screen NEGATIVE Ethyl Alcohol < 5.0 05/14/23 05:49 WBC RBC Hgb Hct MCV MCH MCHC RDW Plt Count MPV Neut # (Auto) Lymph # (Auto) [place] # (Auto) Eos # (Auto) Baso # (Auto) Absolute Nucleated RBC Nucleated RBC % Sodium Potassium Chloride Carbon Dioxide Anion Gap BUN Creatinine Estimated GFR (MDRD) Glucose Calcium Total Bilirubin AST ALT Alkaline Phosphatase Total Protein Albumin Globulin Albumin/Globulin Ratio Lipase TSH 3.49 Urine Color Urine Clarity Urine pH Ur Specific [facility] Urine Protein Urine Glucose (UA) Urine Ketones Urine Occult Blood Urine Nitrite Urine Bilirubin Urine Urobilinogen Ur Leukocyte Esterase Urine RBC Urine WBC Ur Squamous Epith Cells Urine Bacteria Ur Microscopic Review Urine Culture Comments Salicylates Urine Opiates Screen Ur Oxycodone Screen Urine Methadone Screen Ur Propoxyphene Screen Acetaminophen Ur Barbiturates Screen Ur Tricyclics Screen Ur Phencyclidine Scrn Ur Amphetamine Screen U Methamphetamines Scrn U Benzodiazepines Scrn Urine Cocaine Screen U Cannabinoids Screen Ethyl Alcohol PD Medical Decision Making - ED course Complexity details: reviewed old records, reviewed results, re-evaluated patient, considered differential, d/w patient ED course: No concerning findings on tonight's tests. Normal CBC. Mild hypokalemia (potassium 3.3) noted. Mildly elevated bilirubin but otherwise normal LFTs. Urine drug screen is negative, alcohol level is undetectable. Care of this patient is turned over to the oncoming ED physician (Dr. Perez) at the end of my shift, at which time a social work consult is pending to help with placement at an appropriate facility.
[2023-05-14 06:10] LABS: ACETAMINOPHEN < 10 ug/mL (10-30); ALBUMIN 3.8 g/dL (3.2-5.5); ALBUMIN/GLOBULIN RATIO 0.9 (1.0-2.2); ALKALINE PHOSPHATASE 73 IU/L (42-121); ALT ALANINE AMINOTRANSFERASE 36 IU/L (10-60); AST ASPARTATE AMINOTRANSFERASE 35 IU/L (10-42); BILIRUBIN,TOTAL 1.7 mg/dL (0.2-1.0); BUN - BLOOD UREA NITROGEN 8 mg/dL (6-20); CALCIUM 8.8 mg/dL (8.5-10.3); CARBON DIOXIDE - CO2 22 mmol/L (21-32); CHLORIDE 102 mmol/L (101-111); CREATININE 0.7 mg/dL (0.4-1.0); ETOH - ETHANOL < 5.0 mg/dL; GFR - MDRD 92 (>89); GLUCOSE 126 mg/dL (70-100); LIPASE 26 U/L (22-51); POTASSIUM 3.3 mmol/L (3.5-5.0); SALICYLATE < 6.0 mg/dL; SODIUM 135 mmol/L (135-145)
[2023-05-14 09:01] LABS: HCG UR QUAL NEGATIVE
--- NOTE | 2023-05-14 10:41 | ED Physician Documentation ---
ED Addendum - Addendum Addendum: Patient signed out to me by overnight physician. She has been calm and cooperative. She is voluntary for placement and has been seen by social work. She has been accepted to [facility]. Departure - Departure Disposition: [facility]/Unit DC/[place] Clinical Impression: Psychiatric symptoms Condition: Stable
[2023-05-14 13:41] VITALS: BP 136/80
== END 2023-05-14 13:12 ==
LOC: ED 05:11
DX: F99 Mental disorder, not otherwise specified (principal); Z20.822 Contact with and (suspected) exposure to COVID-19
CPT/HCPCS: 36415; 80053; 80306; 80307; 80320; 80329; 81001; 81003; 81025; 83690; 84443; 85025; 87086; 99284; 99285

== ENCOUNTER 2023-08-14 07:54 | Outpatient (CLI) | payer OTHER ==
--- NOTE | 2023-09-10 17:03 | MRI Report ---
BREAST MRI OF BOTH BREASTS- WITH AUGMENTATION: 08/14/2023 CLINICAL: High risk screening. TECHNIQUE: The patient was placed prone in a dedicated breast imaging coil. Routine noncontrast breast implant i ntegrity protocol was performed to include axial T1 nonfat sat, coronal T2, axial STIR, axial STIR si licone selective, bilateral sagittal STIR silicone selective, and bilateral sagittal T2 fat-sat. COMPARISON: None available for review. Image quality: Diagnostic Right breast: Right breast silicone implant is in place and appears intact. Multiple radial folds. S mall amount of subcapsular fluid noted. This is likely physiologic. No adenopathy identified in the r ight axilla. Left breast: Left breast silicone implant is in place and appears intact. Multiple radial folds. Sma ll amount of subcapsular fluid noted. This is also likely physiologic in etiology. No adenopathy seen in the left axilla. Miscellaneous: The visualized portions of the upper abdomen and chest appear unremarkable. IMPRESSION: BENIGN Bilateral silicone breast implants appear intact. No suspicious mass lesions or adenopathy seen. This exam was interpreted at Station ID: [id number]. Electronically Signed By: Bishop Cristina M.D. aty/:09/09/2023 13:29:17 copy to: YOKO MILLER ACR BI-RADS Category 2: Benign Finding(s) 3342F BI-RADS CATEGORY: (2) - 2 Unspecified - other recall n/a LATERALITY: (B)
== END 2023-08-14 07:55 | disposition home or self-care (01) ==
LOC: DI 07:54
PROVIDERS: ATTEND Registered Nurse
DX: Z98.82 Breast implant status (principal)

== ENCOUNTER 2023-12-02 15:04 | Outpatient (CLI) | payer OTHER | END 2023-12-02 15:05 | disposition home or self-care (01) | LOC: DI 15:04 | PROVIDERS: ATTEND Registered Nurse | DX: R00.2 Palpitations (principal); Z82.49 Family history of ischemic heart disease and other diseases of the circulatory system | CPT/HCPCS: 93307 ==

== ENCOUNTER 2024-06-28 08:15 | Outpatient (CLI) | payer OTHER | END 2024-06-28 08:30 | disposition home or self-care (01) | LOC: LAB.N 08:15 | PROVIDERS: ATTEND Physician Assistant Medical | DX: R30.0 Dysuria (principal) | CPT/HCPCS: 87086; 87181 ==